=== PATIENT | male | born 1970 | race Caucasian/White ===

== ENCOUNTER 2016-09-26 04:35 | Emergency (ER) | payer OTHER ==
[~2016-09-26] VITALS: Ht 188 cm; Wt 135.3 kg
[~2016-09-26 04:35] MED LIST: CHERRY EXTRACT PO; DULCOLAX5 MG PO; FLEXERIL10 MG PO; KADIAN60 MG PO; MORPHINE SULFAT30 M2 PO; NEURONTIN300 MG PO; OXYCODONE HCL15 MG PO
[2016-09-26] MEDS ORDERED: ZOFRAN4 MG PO (05:31)
[2016-09-26] MEDS ORDERED: TORADOL10 MG PO ×2 (05:31→05:42)
[2016-09-26 05:59] LABS: HEMATOCRIT 41.8 % (38.0-50.0); MCHC 33.5 G/DL (30.0-36.0); MCV 86.7 FL (86-99); PLATELET COUNT 121 K/uL (156-360); RBC DIS.WIDTH-CV 13.7 % (11.8-14.6); RBC DIS.WIDTH-SD 42.9 % (39-53); RED BLOOD COUNT 4.82 M/uL (4.00-5.50); WHITE BLOOD COUNT 8.8 K/uL (4.1-10.2)
[2016-09-26 06:06] LABS: CHLORIDE 106 mEq/L (99-109); POTASSIUM 3.8 mEq/L (3.7-5.4); SODIUM 141 mEq/L (136-147)
[2016-09-26 06:09] LABS: GLUCOSE 186 mg/dL (70-99)
[2016-09-26 06:10] LABS: ANION GAP 11 MEQ/L (2-14); TOTAL BILIRUBIN 0.3 mg/dL (0.0-1.0)
[2016-09-26 06:12] LABS: ALKALINE PHOSPHATASE 49 IU/L (3-129); GFR ESTIMATE (CALCULATED) 58 mL/min/
[2016-09-26 06:13] LABS: UREA NITROGEN (BUN) 18 mg/dL (9-23)
[2016-09-26 06:14] LABS: DIRECT BILIRUBIN 0.2 mg/dL (0.0-0.3)
[2016-09-26 06:16] LABS: LIPASE 58 U/L (1.0-51.0)
[2016-09-26 06:33] LABS: ADD MIUA? YES; BILIRUBIN NEGATIVE; BLOOD SMALL; COLOR YELLOW ((YELLOW)); GLUCOSE (STRIP) 50; KETONES 5; LEUKOCYTES NEGATIVE; NITRITE NEGATIVE; PROTEIN (STRIP) NEGATIVE; SPECIFIC GRAVITY 1.021 (1.000-1.030); UROBILINOGEN 0.2 MG/DL (0.2-1.0)
[2016-09-26 06:50] LABS: BACTERIA NONE SEEN /HPF; EPITHELIAL CELLS RARE /HPF; HYALINE CASTS 0-5 /LPF; MUCUS TRACE /LPF; UCUL ADDED? NO; WHITE BLOOD CELLS 0-5 /HPF (0-5)
[2016-09-26 07:50] VITALS: BP 160/88
== END 2016-09-26 07:51 | disposition home or self-care (01) ==
LOC: EME → EDBD 04:35 → EME 07:51
DX: N13.2 Hydronephrosis with renal and ureteral calculous obstruction (principal); K57.30 Diverticulosis of large intestine without perforation or abscess without bleeding; G89.29 Other chronic pain; Z79.891 Long term (current) use of opiate analgesic; Z87.891 Personal history of nicotine dependence
CPT/HCPCS: 71020; 74176; 80048; 80076; 81003; 83690; 84484; 85027; 93005; 99281; 99284; J1885; J2405; J3010